=== PATIENT | male | born 1995 | race Caucasian/White ===

== ENCOUNTER 2017-02-04 21:27 | Emergency (ER) | payer MEDICAID, OTHER ==
[2017-02-04 21:33] VITALS: RESP 16; TEMP 97.5
--- NOTE | 2017-02-04 22:34 | EDPHY ---
H & P Smoking Status: Never smoked HPI/ROS: Chief complaint: Hemorrhoid History of present illness: This is a 21-year-old male who presents to the emergency department concerned he has a hemorrhoid. Patient reports a long history of problems with hemorrhoids. He reports most recent symptoms developed over the last few days. He reports pain and itching. Denies precipitating factors. Denies alleviating factors. Denies other associated signs or symptoms. He has not treated with ieez-tub-[id number] medications. He is not followed by a doctor at this time as he is just now getting health insurance. (Merlin Pike) Physical Exam: General: Alert, nontoxic Abdomen: Bowel sounds normal. Abdomen is soft, nondistended, nontender. Rectal exam: A large nonthrombosed hemorrhoid is noted the anal region. (Merlin Pike) Constitutional: Initial Vital Signs Temperature (C) 36.4 C 02/04/17 21:29 Heart Rate 82 02/04/17 21:29 Respiratory Rate 16 02/04/17 21:29 Blood Pressure 131/84 H 02/04/17 21:29 O2 Sat (%) 95 02/04/17 21:29 O2 Delivery Mode Room Air Allergies/Adverse Reactions: azithromycin Allergy (Verified 10/27/14 10:23) Home Medications: Medication Instructions Recorded Nexium 10/27/14 MDM/Departure - [facility] ED Course/Re-evaluation: Patient seen under the supervision of my secondary supervising physician Dr. Herson Hunter. Patient presents to the emergency department concerned he has a hemorrhoid. Physical exam does reveal a hemorrhoid. No evidence of thrombosis at this time. I believe patient is appropriate for discharge home. Home care is discussed including the use of Anusol HC cream, stool softeners and Sitz baths. He is referred to general surgery for further evaluation and care. Return precautions are given. Patient voiced understanding and agreement with plan. (Merlin Pike) PHYSICIAN DOCUMENTATION: The patient was evaluated and managed by the Physician Security Associate. My co- signature indicates that I have reviewed this chart and I agree with the findings and plan of care as documented. I am the secondary supervising physician. (Elke Hunter) Differential Diagnosis: Included but not limited to thrombosed hemorrhoid, external hemorrhoid, internal hemorrhoids, abscess (Merlin Pike) - Depart Disposition: Home, Routine, Self-Care Clinical Impression: Hemorrhoid Condition: Good Instructions: Hemorrhoids (ED) Additional Instructions: Follow-up with General surgery for continued evaluation and care Use [id number] Anusol HC cream for your hemorrhoids Please use a stool softener such as Colace or use Metamucil or Citrucel Perform Sitz baths as discussed If symptoms worsen or new symptoms develop return to the emergency room for recheck Referrals: NONE *PRIMARY CARE P,. [Primary Care Provider] - As per Instructions Selena Barrios MD [Medical Doctor] - As per Instructions
[2017-02-04 22:46] VITALS: BP 126/76; PULSE 78; O2SAT 98
== END 2017-02-04 22:46 | disposition home or self-care (01) ==
DX: K64.9 Unspecified hemorrhoids (principal)

== ENCOUNTER 2017-02-12 10:01 | Day surgery (SDC) | payer MEDICAID ==
--- NOTE | 2017-02-11 11:18 | GHP ---
[f rep st] PREOP HISTORY AND PHYSICAL DATE OF ADMISSION: 02/12/2017 CHIEF COMPLAINT: External hemorrhoids, HISTORY OF PRESENT ILLNESS: The patient is a 21-year-old man who presents to the clinic with a new diagnosis of external hemorrhoids, he presented to the emergency room on 02/04/2017, complaining of rectal pain. He has had a long history with problems with hemorrhoid. He just recently developed [employer] insurance and decided to seek care. Over the past several weeks, the hemorrhoid have increase d in symptoms. He reports severe pain with bowel movements, itching as well as bleeding with bowel movements. Prior to several weeks ago, he only reported having internal symptoms such as prolapsing hemorrhoids with bowel movements which would reduce spontaneously. He has never had episodes of pa in associated with his hemorrhoids before. Also, of note, he has lost over 100 pounds in the last y ear and attributes his recent health problems to increased exercise associated with the weight loss. He denies constipation or diarrhea. He reports a healthy diet including high fiber and is adequat jaime hydrated. At this time, he has elected to undergo exam under anesthesia with hemorrhoidectomy. He has recently used Anusol stool softener and sitz baths with some improvement. He reports that t he hemorrhoid is getting softer and less painful. PAST MEDICAL HISTORY: Asthma. PAST SURGICAL HISTORY: None. ALLERGIES: Azithromycin and tree nuts. SOCIAL HISTORY: He works as an entertainer. His mother is a nurse. He denies tobacco, alcohol, or recreational drug use. FAMILY HISTORY: Noncontributory. REVIEW OF SYSTEMS: 10-point review of systems negative aside from the HPI. PHYSICAL EXAMINATION: GENERAL: Well-developed, well-nourished young man in no acute distress. RADHA NT: Normocephalic, atraumatic. No hearing deficits. Pupils equal and round. No scleral icterus. Mucous membranes moist. NECK: Trachea midline. RESPIRATORY: Clear to auscultation bilaterally. No increased work of breathing. CARDIOVASCULAR: Regular rate and rhythm. No peripheral edema. A BDOMEN: Soft, nondistended, nontender. RECTAL: Large right lateral resolving thrombosed external hemorrhoid. Internal exam shows circumferential internal hemorrhoids, small. No active bleeding. PSYCH: Mood and affect normal. NEURO: Grossly intact. SKIN: Warm and dry. IMPRESSION AND PLAN: The patient is a 21-year-old man with external hemorrhoid as well as several i nternal hemorrhoids. He has elected at this time to undergo exam under anesthesia with hemorrhoidmanuel kelley. We discussed risks of surgery including, but not limited to, heart attack, stroke, blood clot s or . We discussed risk of infection, bleeding, stricture, incontinence. He understands the risks and would like to proceed. He has also elected to participate in a trial using EpiFix at the site of the surgical incision. This will be placed at the time of surgery. He had his questions an swered to his satisfaction. The patient was additionally seen by Dr. Selena Barrios who agrees with the above impression and plan. /[id number]/MODL
[2017-02-12] MEDS ORDERED: LIDOCAINE 1% 2 ML INJ ONE (10:14)
[2017-02-12 10:28] VITALS: TEMP 97.7
[2017-02-12] MEDS ORDERED: LR 1,000 ML IV ONE (10:30)
[2017-02-12] MEDS ORDERED: cefOXitin SODIUM 2 GM in D5W 100 ML IV ONE (10:30)
[2017-02-12] MEDS ORDERED: LIDOCAINE 1% 2 ML INJ ID PRN (10:30)
[2017-02-12] MEDS ORDERED: BUPIVACAINE/EPI 0.5% 30 ML SDV ONE (10:41)
[2017-02-12] MEDS ORDERED: PROPOFOL/EMULSION 500 MG/50 ML BOTTLE IV ONE (10:53)
[2017-02-12] MEDS ORDERED: KETAMINE 100 MG/10 ML SYR ONE (10:53)
[2017-02-12] MEDS ORDERED: fentaNYL 100 MCG/2 ML INJ ONE (10:53)
[2017-02-12] MEDS ORDERED: MIDAZOLAM 2 MG/2 ML VIAL ONE (10:53)
--- NOTE | 2017-02-12 11:01 | PDANEPAE ---
ANE History of Present Illness Otherwise healthy 21 year old male with hemorrhoids. No other medical issues ANE Past Medical History - Cardiovascular History Hx Hypertension: No Hx Arrhythmias: No Hx Chest Pain: No Hx Coronary Artery / Peripheral Vascular Disease: No Hx CHF / Valvular Disease: No Hx Palpitations: No - Pulmonary History Hx COPD: No Hx Asthma/Reactive Airway Disease: Yes Hx Recent Upper Respiratory Infection: No Hx Oxygen in Use at Home: No - Neurologic History Hx Cerebrovascular Accident: No Hx Seizures: No Hx Dementia: No - Endocrine History Hx Diabetes: No - Renal History Hx Renal Disorders: No - Liver History Hx Hepatic Disorders: No - Neurological & Psychiatric Hx Hx Neurological and Psychiatric Disorders: No - Cancer History Hx Cancer: No - Congenital Disorder History Hx Congenital Disorders: No - GI History Hx Gastrointestinal Disorders: Yes - Chronic Pain History Chronic Pain: No ANE Review of Systems - Exercise capacity METS (RN): 4 METS ANE Patient History - Allergies Allergies/Adverse Reactions: azithromycin Allergy (Verified 10/27/14 10:23) tree nut Allergy (Verified 02/11/17 17:05) - Home Medications Home Medications: Nexium DAILY06 10/27/14 [Last Taken 02/11/17] Stool Softener HS 02/11/17 [Last Taken 02/11/17] - NPO status NPO Since - Liquids (Date): 02/11/17 NPO Since - Liquids (Time): 00:01 NPO Since - Solids (Date): 02/11/17 NPO Since - Solids (Time): 00:01 - Smoking Hx Smoking Status: Former smoker ANE Labs/Vital Signs - Vital Signs Blood Pressure: 137/74 Heart Rate: 50 Respiratory Rate: 16 O2 Sat (%): 98 Height: 190.5 cm Weight: 99.337 kg ANE Physical Exam - Airway Mallampati Score: Class 1 Mouth exam: normal dental/mouth exam - Pulmonary Pulmonary: no respiratory distress - Cardiovascular Cardiovascular: regular rate and rhythym - ASA Status ASA Status: I ANE Anesthesia Plan Anesthesia Plan: MAC Urgent/Emergent Case: Anand holm completed preop but documented later for safe timely pt care
[2017-02-12] MEDS ORDERED: HYDROmorphONE/DILAUDID 2 MG/ML INJ ONE (11:16)
[2017-02-12] MEDS ORDERED: DEXAMETHASONE 4 MG/ML VIAL IVP PRN (11:32)
[2017-02-12] MEDS ORDERED: fentaNYL 100 MCG/2 ML INJ IVP PRN (11:32)
[2017-02-12] MEDS ORDERED: ONDANSETRON 4 MG/2 ML VIAL IVP PRN (11:32)
[2017-02-12] MEDS ORDERED: LR 500 ML IV PRN (11:32)
[2017-02-12] MEDS ORDERED: NALOXONE HCL 0.4 MG/ML INJ IVP PRN (11:32)
[2017-02-12] MEDS ORDERED: OXYCODONE/APAP 5/325 TAB PO PRN (11:32)
[2017-02-12] MEDS ORDERED: HYDROmorphONE/DILAUDID 1 MG/ML SYR IVP PRN (11:32)
[2017-02-12] MEDS ORDERED: MEPERIDINE 25 MG/ML SYR IVP PRN (11:32)
--- NOTE | 2017-02-12 11:34 | PDHPUP ---
History & Physical Update H&P update statement: This history and physical update is based on an assessment of the patient which was completed after admission or registration (within 24 hours), but prior to the surgery/procedure. H&P update: H&P reviewed & patient examined, no change in patient's condition since H&P completed
[2017-02-12] MEDS ORDERED: DEXAMETHASONE 4 MG/ML VIAL ONE (11:39)
[2017-02-12] MEDS ORDERED: ONDANSETRON 4 MG/2 ML VIAL ONE (11:39)
--- NOTE | 2017-02-12 11:53 | POSTOPPROG ---
Post Op Note Date of Operation: 02/12/17 Surgeon: Selena Barrios Anesthesiologist: jem Anesthesia: GET(General Endotracheal) Pre-op Diagnosis: thrombosed external hemorrhoid Post-op Diagnosis: same Indication: 21 yo with large thrombosed hemorrhoid Procedure: hemorrhoidectomy x 1 pile and injection micronized Findings: very large external hemorrhoid Inf/Abcess present in the surg proc area at time of surgery?: No EBL: Minimal Specimen(s): hemorrhoid
[2017-02-12 13:19] VITALS: O2SAT 95
[2017-02-12 14:35] VITALS: BP 123/63; PULSE 53; RESP 15
--- NOTE | 2017-02-16 15:36 | GOP ---
[f rep st] OPERATIVE REPORT DATE OF OPERATION: 02/12/2017 SURGEON: Selena Barrios MD ANESTHESIA: General/Dr. Noe PREOPERATIVE DIAGNOSIS: Thrombosed external hemorrhoid. POSTOPERATIVE DIAGNOSIS: Thrombosed external hemorrhoid. PROCEDURE PERFORMED: Hemorrhoidectomy x1 pile. FINDINGS: Large thrombosed hemorrhoid SPECIMENS: Hemorrhoid. ESTIMATED BLOOD LOSS: 5 cc. INDICATIONS: The patient is a 21-year-old, who has lost over 100 pounds. He developed painful, enlarging thrombosed hemorrhoid. DESCRIPTION OF PROCEDURE: The patient was brought into the operating room, placed supine on the table. General anesthesia was administered. He was placed in the lithotomy position. His bottom was prepped and draped in the usual sterile fashion. I performed a digital rectal exam and anoscopy and saw the external hemorrhoid that extended into the anal canal. I infiltrated the area with 0.5% Marcaine. I grasped the hemorrhoid, and I excised it. Hemostasis was achieved. I then injected AmnioFix 100 mg reconstituted with 2 cc of saline [id number], with expiration July 23, 2021, into the wound bed. I sutured the defect closed with 3-0 Vicryl. He was taken out of the lithotomy position. ABD and mesh pants were applied. He was awakened in the operating room, extubated, transferred into PACU in stable condition. /[id number]/MODL MTDD
== END 2017-02-12 14:25 | disposition home or self-care (01) ==
LOC: FSGY 10:01
PROVIDERS: ATTEND Surgery
PROC: 06BY0ZC Excision of Hemorrhoidal Plexus, Open Approach (ICD-10-PCS; principal; 2017-02-12 11:45)
DX: K64.5 Perianal venous thrombosis (principal); J45.909 Unspecified asthma, uncomplicated
CPT/HCPCS: J0694; J1100; J1170; J2250; J2405; J2704; J3010